=== PATIENT | male | born 1955 | race Caucasian/White ===

== ENCOUNTER 2021-06-05 11:25 | Outpatient (CLI) | payer MEDICARE, MEDICAID | END 2021-06-05 11:26 | disposition critical access hospital (66) | LOC: EMS 11:25 | DX: R10.13 Epigastric pain (principal) | CPT/HCPCS: A0425; A0427 ==

== ENCOUNTER 2021-06-05 11:49 | Emergency (ER) | payer MEDICARE, MEDICAID ==
[2021-06-05 12:17] LABS: BASOPHILS % (AUTO) 0.4 %; EOSINOPHILS % (AUTO) 0.1 %; HCT - HEMATOCRIT 44.8 % (42.0-52.0); HGB - HEMOGLOBIN 16.1 g/dL (14.0-18.0); LYMPHOCYTES % (AUTO) 4.4 %; MEAN CORPUSCULAR HGB CONC 35.9 g/dL (32.0-36.0); MEAN CORPUSCULAR VOLUME 91.8 fL (80.0-94.0); MEAN PLATELET VOLUME 10.7 fL (7.4-11.4); MONOCYTES % (AUTO) 6.5 %; NEUTROPHILS % (AUTO) 86.9 %; PLT - PLATELET COUNT 66 10^3/uL (130-450); RED BLOOD COUNT 4.88 10^6/uL (4.70-6.10); RED CELL DISTRIBUTION WIDTH 13.9 % (12.0-15.0); WHITE BLOOD COUNT 21.6 x10^3/uL (4.8-10.8)
[2021-06-05 12:24] LABS: ABNORMAL LYMPHS % (MANUAL) 0 %; LYMPHOCYTES % (MANUAL) 0 %
[2021-06-05 12:27] LABS: ALBUMIN 3.3 g/dL (3.2-5.5); CALCIUM 8.5 mg/dL (8.5-10.3); CREATININE 1.2 mg/dL (0.6-1.2); POTASSIUM 3.6 mmol/L (3.5-5.0); TOTAL PROTEIN 6.6 g/dL (6.7-8.2)
[2021-06-05] MEDS ORDERED: ONDANSETRON 4 MG/2 ML VIAL IVP STA (12:35)
[2021-06-05] MEDS ORDERED: SODIUM CHLORIDE 0.9% 1,000 ML IV STA (12:35)
[2021-06-05] MEDS ORDERED: HYDROmorphone 1 MG/ML CARPUJECT IVP STA (12:35)
[2021-06-05 12:40] LABS: BAND NEUTROPHILS % (MANUAL) 31 %; DIFFERENTIAL COMMENT MANUAL DIFFERENTIAL; LYMPHOCYTES # (MANUAL) 0.4 10^3/uL (1.5-3.5); MONOCYTES # (MANUAL) 1.1 10^3/uL (0.0-1.0); NEUTROPHILS # (MANUAL) 20.1 10^3/uL (1.5-6.6); REACTIVE LYMPHS % (MANUAL) 2 %
--- NOTE | 2021-06-05 12:45 | ED Physician Documentation ---
PD HPI ABD PAIN - Stated complaint Stated Complaint: ABD PX - Chief complaint Chief Complaint: Abd Pain - History obtained from History obtained from: Patient - History of Present Illness Timing - onset: How many days ago (2) Timing - duration: Days (2) Timing - details: Gradual onset Pain level max: 10 Pain level now: 10 Quality: Aching, Pain Location: Epigastric Radiation: No: Chest, , Lower back, Left flank, Left shoulder, Right flank, Right shoulder, Upper back Worsened by: Moving, Palpation Associated symptoms: Nausea, Diarrhea. No: Fever, Vomiting, Hematemesis, Co nstipation, Melena, Hematochezia, Dysuria, Hematuria - Additional information Additional information: Patient is a 66-year-old male who presents to the emergency department complaint of abdominal pain for the past 2 days. Complains of fever as well. He states similar symptoms occurred about 4 years ago when he was hospitalized at [facility] for 2 days. He states that they never told him what the diagnosis was. He states that he thought it would get better but the pain has gotten progressively worse over the past 2 days. The pain is mainly in the epigastric area. Nonradiating. Nothing seems to make it better. Worse with movement and palpation. Has had nausea but no vomiting. Has had diarrhea. No constipation. No melena. No dysuria. He states he drinks 1-2 beers per night. He states he recently started smoking 1 month ago as well. Review of Systems Constitutional: denies: Fever, Chills Ears: denies: Ear pain Nose: denies: Rhinorrhea / runny nose, Congestion Respiratory: denies: Cough GI: denies: Nausea, Vomiting, Diarrhea Skin: denies: Rash Musculoskeletal: denies: Neck pain, Back pain Neurologic: denies: Headache PD PAST MEDICAL HISTORY - Past Medical History Past Medical History: Yes Cardiovascular: Hypertension GI: GERD - Past Surgical History Past Surgical History: Yes General: Cholecystectomy - Present Medications Home Medications: Ambulatory Orders Medication Instructions Recorded Confirmed No Known Home Medications 06/05/21 06/05/21 - Allergies Allergies/Adverse Reactions: Allergies Allergy/AdvReac Type Severity Reaction Status Date / Time No Known Drug Allergies Allergy Verified 06/05/21 11:55 PD ED PE NORMAL - Vitals Vital signs reviewed: Yes - General General: Alert and oriented X 3, No acute distress, Well developed/nourished - HEENT HEENT: PERRL, Moist mucous membranes - Neck Neck: Supple, no meningeal sign - Cardiac Cardiac: RRR, Strong equal pulses - Respiratory Respiratory: No respiratory distress, Clear bilaterally - Abdomen Abdomen: Soft, Non distended, Other (Tender to palpation epigastric. Positive rebound and guarding.) - Derm Derm: Warm and dry - Extremities Extremities: No edema, No calf tenderness / cord - Neuro Neuro: Alert and oriented X 3 - Psych Psych: Normal mood, Normal affect Results - Vitals Vitals: Vital Signs - 24 hr 06/05/21 06/05/21 06/05/21 11:55 12:06 12:33 Temperature 38.0 C H Heart Rate 120 H 120 H 119 H Respiratory 20 25 H 25 H Rate Blood Pressure 132/89 H 113/77 113/77 O2 Saturation 99 97 99 06/05/21 06/05/21 13:10 13:36 Temperature Heart Rate 113 H 105 H Respiratory 20 19 Rate Blood Pressure 118/88 H O2 Saturation 100 99 Oxygen O2 Source Room air - Labs Labs: Laboratory Tests 06/05/21 06/05/21 06/05/21 12:10 12:10 12:10 WBC 21.6 H RBC 4.88 Hgb 16.1 Hct 44.8 MCV 91.8 MCH 33.0 H MCHC 35.9 RDW 13.9 Plt Count 66 L MPV 10.7 Neut # (Auto) Not Reportable Lymph # (Auto) Not Reportable Bertie # (Auto) Not Reportable Eos # (Auto) Not Reportable Baso # (Auto) Not Reportable Absolute Nucleated RBC Not Reportable Total Counted 100 Band Neuts % (Manual) 31 H Reactive Lymphs % (Man) 2 Abnorm Lymph % (Manual) 0 Nucleated RBC % Not Reportable Neutrophils # (Manual) 20.1 H Lymphocytes # (Manual) 0.4 L Monocytes # (Manual) 1.1 H Eosinophils # (Manual) 0.0 Basophils # (Manual) 0.0 Differential Comment MANUAL DIFFERENTIAL ESR PT INR APTT Sodium 134 L Potassium 3.6 Chloride 101 Carbon Dioxide 17 L Anion Gap 16.0 H BUN 30 H Creatinine 1.2 Estimated GFR (MDRD) 61 L Glucose 147 H Lactic Acid Calcium 8.5 Total Bilirubin 8.0 H AST 141 H ALT 168 H Alkaline Phosphatase 79 C-Reactive Protein Total Protein 6.6 L Albumin 3.3 Globulin 3.3 Albumin/Globulin Ratio 1.0 Lipase 24 Urine Color Urine Clarity Urine pH Ur Specific Eden Urine Protein Urine Glucose (UA) Urine Ketones Urine Occult Blood Urine Nitrite Urine Bilirubin Urine Urobilinogen Ur Leukocyte Esterase Urine RBC Urine WBC Urine WBC Clumps Ur Squamous Epith Cells Urine Bacteria Urine Casts Ur Microscopic Review Urine Culture Comments Blood Type Blood Type Recheck O POSITIVE Antibody Screen 06/05/21 06/05/21 06/05/21 13:05 13:26 13:26 WBC RBC Hgb Hct MCV MCH MCHC RDW Plt Count MPV Neut # (Auto) Lymph # (Auto) Bertie # (Auto) Eos # (Auto) Baso # (Auto) Absolute Nucleated RBC Total Counted Band Neuts % (Manual) Reactive Lymphs % (Man) Abnorm Lymph % (Manual) Nucleated RBC % Neutrophils # (Manual) Lymphocytes # (Manual) Monocytes # (Manual) Eosinophils # (Manual) Basophils # (Manual) Differential Comment ESR 47 H PT INR APTT Sodium Potassium Chloride Carbon Dioxide Anion Gap BUN Creatinine Estimated GFR (MDRD) Glucose Lactic Acid Calcium Total Bilirubin AST ALT Alkaline Phosphatase C-Reactive Protein 37.1 H Total Protein Albumin Globulin Albumin/Globulin Ratio Lipase Urine Color DK. ORANGE Urine Clarity CLEAR Urine pH 6.0 Ur Specific Eden 1.025 Urine Protein 30 H Urine Glucose (UA) NEGATIVE Urine Ketones 15 H Urine Occult Blood SMALL H Urine Nitrite NEGATIVE Urine Bilirubin LARGE H Urine Urobilinogen 1 (NORMAL) Ur Leukocyte Esterase NEGATIVE Urine RBC 0-5 Urine WBC 0-3 Urine WBC Clumps PRESENT Ur Squamous Epith Cells FEW Squamous Urine Bacteria Few Urine Casts 0-2 WBC Casts Ur Microscopic Review INDICATED Urine Culture Comments NOT INDICATED Blood Type Blood Type Recheck Antibody Screen 06/05/21 06/05/21 06/05/21 13:26 13:48 13:48 WBC RBC Hgb Hct MCV MCH MCHC RDW Plt Count MPV Neut # (Auto) Lymph # (Auto) Bertie # (Auto) Eos # (Auto) Baso # (Auto) Absolute Nucleated RBC Total Counted Band Neuts % (Manual) Reactive Lymphs % (Man) Abnorm Lymph % (Manual) Nucleated RBC % Neutrophils # (Manual) Lymphocytes # (Manual) Monocytes # (Manual) Eosinophils # (Manual) Basophils # (Manual) Differential Comment ESR PT 13.3 H INR 1.2 APTT 24.5 L Sodium Potassium Chloride Carbon Dioxide Anion Gap BUN Creatinine Estimated GFR (MDRD) Glucose Lactic Acid 2.6 H Calcium Total Bilirubin AST ALT Alkaline Phosphatase C-Reactive Protein Total Protein Albumin Globulin Albumin/Globulin Ratio Lipase Urine Color Urine Clarity Urine pH Ur Specific Eden Urine Protein Urine Glucose (UA) Urine Ketones Urine Occult Blood Urine Nitrite Urine Bilirubin Urine Urobilinogen Ur Leukocyte Esterase Urine RBC Urine WBC Urine WBC Clumps Ur Squamous Epith Cells Urine Bacteria Urine Casts Ur Microscopic Review Urine Culture Comments Blood Type O POSITIVE Blood Type Recheck Antibody Screen NEGATIVE - Rads (name of study) CT abdomen and pelvis Radiology: Final report received, EMP read contemporaneously, See rad report PD MEDICAL DECISION MAKING - ED course Complexity details: reviewed results, re-evaluated patient, considered differential, d/w patient, d/w customer support consultant ED course: Patient appears to be having a impending rupture of his AAA. I discussed the case with radiology, Dr. Fairbanks at 1332. I contacted [facility] at 1335. They state that they have no ICU beds and cannot care for the patient. I then contacted [facility] for emergent transfer at 1338. Talked to the [facility] transfer center at 1348. They state that this needs to be run by vascular surgery. They will contact Dr. Jones for potential acceptance. Discussed the case with Dr. Jones, [facility], vascular surgery at 1410. He graciously accepts in transfer. Patient will be sent via [facility] to [facility]. Pain well controlled. [address] COBRA forms completed. This document was made in part using voice recognition software. While efforts are made to proofread this document, sound alike and grammatical errors may occur. IMPRESSION: 1. Fusiform infrarenal abdominal aortic aneurysm and aneurysm of the right common iliac artery. Thrombus formation throughout aortic lumen and right common iliac artery lumen contrast extension into thrombus along the anterior aspect of abdominal aortic aneurysmal sac concerning for impending rupture. 2. No bowel obstruction or abnormal bowel wall thickening. No free fluid or free air. Colonic diverticulosis without evidence of acute diverticulitis. 3. Hepatic steatosis. Prior cholecystectomy. Departure - Departure Disposition: 02 Transfer Acute Care Hosp Clinical Impression: Iliac artery aneurysm, right AAA (abdominal aortic aneurysm) Qualifiers: Presence of rupture: without rupture Qualified Code(s): I71.4 - Abdominal aortic aneurysm, without rupture Abdominal pain Qualifiers: Abdominal location: unspecified location Qualified Code(s): R10.9 - Unspecified abdominal pain Fever Qualifiers: Fever type: unspecified Qualified Code(s): R50.9 - Fever, unspecified Leukocytosis Qualifiers: Leukocytosis type: unspecified Qualified Code(s): D72.829 - Elevated white blood cell count, unspecified Condition: Stable Discharge Date/Time: 06/05/21 14:38
[2021-06-05] MEDS ORDERED: IOVERSOL 320 50 ML VIAL ONE (12:51)
[2021-06-05] MEDS ORDERED: IOVERSOL 320 50 ML VIAL IVP ONE (13:06)
[2021-06-05 13:16] LABS: GLUCOSE, URINE (UA) NEGATIVE (NEGATIVE); KETONES,URINE (UA) 15 mg/dL (NEGATIVE); LEUKOCYTE ESTERASE, URINE NEGATIVE (NEGATIVE); NITRITE,URINE NEGATIVE (NEGATIVE); OCCULT BLOOD,URINE SMALL (NEGATIVE); PROTEIN,URINE 30 mg/dL (NEGATIVE); UROBILINOGEN,URINE 1 (NORMAL) E.U./dL (NORMAL)
[2021-06-05 13:23] LABS: CLARITY,URINE CLEAR (CLEAR)
[2021-06-05 13:25] LABS: BILIRUBIN,URINE LARGE (NEGATIVE); ICTOTEST,URINE POSITIVE
[2021-06-05 13:33] LABS: RBC,URINE 0-5 /HPF (0-5); SQUAMOUS EPITHELIAL CELL,UR FEW Squamous (<= Few); WBC CLUMPS,URINE PRESENT; WBC,URINE 0-3 /HPF (0-3)
--- NOTE | 2021-06-05 13:33 | CT Report ---
PROCEDURE: Abdomen/Pelvis W INDICATIONS: diffuse abd pain CONTRAST: IV CONTRAST: Optiray 320 ml: 100 PO CONTRAST: *NO PO CONTRAST TECHNIQUE: After the administration of IV contrast, 5 mm thick sections acquired from the diaphragms to the symp hysis. 5 mm thick coronal and sagittal reformats were acquired. For radiation dose reduction, the f ollowing was used: automated exposure control, adjustment of mA and/or kV according to patient size. COMPARISON: None. FINDINGS: Image quality: Excellent. ABDOMEN: Lung bases: Scattered atelectasis in posterior lateral periphery of bilateral lung bases are seen. He art size is enlarged, no pericardial effusion. Solid organs: Liver is normal in size. Moderate hepatic steatosis is seen, no discrete hepatic lesion . Spleen is normal in size and show normal enhancement. Gallbladder is surgically absent Biliary sys tem is non dilated. Pancreas enhances normally. No adrenal nodules. Kidneys demonstrate normal siz e and enhancement, without hydronephrosis. Peritoneum and bowel: Bowel loops demonstrate normal wall thickness and caliber. No free fluid or a ir. Sigmoid diverticulosis is seen without CT evidence of acute diverticulitis. No abscess collectio n. Nodes and vessels: No retroperitoneal or mesenteric adenopathy by size criteria. There is fusiform infrarenal abdominal aortic aneurysm involving distal 10 cm segment of infrarenal a bdominal aorta and measures up to 5.3 x 5.5 cm in largest transverse and AP dimensions series 3 image 42. Heavy thrombosis throughout the aneurysmal lumen is seen with curvilinear contrast material seen within the thrombus material along the anterior aspect of aneurysmal sac concerning for impending ru pture. There is also aneurysm of right common iliac artery measures up to 4.4 cm in diameter series 3 image 61 with thrombus formation within the lumen. Miscellaneous: No ventral hernias. PELVIS: Genitourinary: Bladder wall thickness is normal. Miscellaneous: No inguinal hernias or adenopathy. Bones: No suspicious bony lesions. No vertebral body compression fractures. IMPRESSION: 1. 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 Thr ombus formation throughout aortic lumen and right common iliac artery lumen contrast extension into t hrombus along the anterior aspect of abdominal aortic aneurysmal sac concerning for impending rupture . 2. No bowel obstruction or abnormal bowel wall thickening. No free fluid or free air. Colonic diverti culosis without evidence of acute diverticulitis. 3. Hepatic steatosis. Prior cholecystectomy. Reviewed by: Bora Fairbanks MD on 06/05/2021 1:32 PM PDT Approved by: Bora Fairbanks MD on 06/05/2021 1:32 PM PDT Station ID: [id number]
[2021-06-05 13:34] LABS: BACTERIA,URINE Few /HPF (None Seen); CASTS, URINE 0-2 WBC Casts /LPF
[2021-06-05 13:37] VITALS: BP 118/88
[2021-06-05 14:07] LABS: INR 1.2 (0.8-1.2); PT - PROTHROMBIN TIME 13.3 secs (9.9-12.6)
[2021-06-05 14:14] LABS: PARTIAL THROMBOPLASTIN TIME 24.5 secs (24.9-33.3)
[2021-06-05 15:14] LABS: CORONAVIRUS 229E-RESP PCR NOT DETECTED; CORONAVIRUS HKU1-RESP PCR NOT DETECTED
[2021-06-05 15:15] LABS: B. PARAPERTUSSIS- RESP PCR PAN NOT DETECTED; B. PERTUSSIS- RESP PCR PANEL NOT DETECTED; C. PNEUMONIAE- RESP PCR PANEL NOT DETECTED; CORONAVIRUS NL63-RESP PCR NOT DETECTED; CORONAVIRUS OC43-RESP PCR NOT DETECTED; HUMAN METAPNEUMOVIRUS NOT DETECTED; INFLUENZA A- RESP PCR PANEL NOT DETECTED; INFLUENZA B - RESP PCR PANEL NOT DETECTED; M. PNEUMONIAE- RESP PCR PANEL NOT DETECTED; PARAINFLUENZA VIRUS 1 NOT DETECTED; PARAINFLUENZA VIRUS 2 NOT DETECTED; PARAINFLUENZA VIRUS 3 NOT DETECTED; PARAINFLUENZA VIRUS 4 NOT DETECTED; RHINOVIRUS/ENTEROVIRUS NOT DETECTED; RSV- RESP PCR PANEL NOT DETECTED; SARS-CoV-2 -RESP PCR PANEL NOT DETECTED
== END 2021-06-05 14:38 | disposition short-term general hospital (02) ==
LOC: ED 11:49
DX: I72.3 Aneurysm of iliac artery (principal); I71.4 Abdominal aortic aneurysm, without rupture; R50.9 Fever, unspecified; D72.829 Elevated white blood cell count, unspecified; Z20.822 Contact with and (suspected) exposure to COVID-19
CPT/HCPCS: 36415; 74177; 80053; 81001; 83605; 83690; 85025; 85610; 85651; 85730; 86140; 86850; 86900; 86901; 87040; 87633; 96361; 96374; 99284; 99285; J1170; 81003; 87086

== ENCOUNTER 2021-06-21 09:17 | Outpatient (CLI) | payer MEDICARE, MEDICAID ==
[2021-06-21 15:00] LABS: ALBUMIN 2.9 g/dL (3.2-5.5); BILIRUBIN,DIRECT 0.7 mg/dL (0.1-0.5); BILIRUBIN,TOTAL 1.5 mg/dL (0.2-1.0); CALCIUM 8.7 mg/dL (8.5-10.3); POTASSIUM 3.9 mmol/L (3.5-5.0); TOTAL PROTEIN 7.2 g/dL (6.7-8.2)
== END 2021-06-21 09:18 | disposition home or self-care (01) ==
LOC: LAB.N 09:17
PROVIDERS: ATTEND Internal Medicine
DX: K80.50 Calculus of bile duct without cholangitis or cholecystitis without obstruction (principal); E87.6 Hypokalemia
CPT/HCPCS: 36415; 80048; 80076

== ENCOUNTER 2021-08-29 01:37 | Outpatient (CLI) | payer MEDICARE, MEDICAID | END 2021-08-29 01:38 | disposition critical access hospital (66) | LOC: EMS 01:37 | DX: G89.18 Other acute postprocedural pain (principal) | CPT/HCPCS: A0425; A0429 ==

== ENCOUNTER 2021-08-29 01:56 | Emergency (ER) | payer MEDICARE, MEDICAID ==
--- NOTE | 2021-08-29 01:56 | ED Physician Documentation ---
History of Present Illness - Stated complaint Stated Complaint: POST SURG/POPPED STITCHES - History obtained from History obtained from: Patient - History of Present Illness Timing: Today Pain level now: 2 - Additonal information Additional information: patient had surgery to repair AAA approximately 2 weeks ago at [facility], discharged today. Tonight he noticed blood on his abdominal binder and upon removing the binder he found the wound had opened and thus called 911. Review of Systems Constitutional: denies: Fever GI: reports: Abdominal Pain (not worse than it has been (gradually decreasing post-operative abdominal discomfort since the surgery)). denies: Nausea, Vomiting PD PAST MEDICAL HISTORY - Past Medical History Past Medical History: Yes - Past Surgical History Past Surgical History: Yes Cardiovascular: AAA - Present Medications Home Medications: Ambulatory Orders Medication Instructions Recorded Confirmed No Known Home Medications 06/05/21 06/05/21 - Allergies Allergies/Adverse Reactions: Allergies Allergy/AdvReac Type Severity Reaction Status Date / Time No Known Drug Allergies Allergy Verified 08/29/21 02:04 PD ED PE NORMAL - Vitals Vital signs reviewed: Yes - General General: Alert and oriented X 3, No acute distress, Other (obese male in NAD) - Cardiac Cardiac: RRR, No murmur - Respiratory Respiratory: No respiratory distress, Clear bilaterally - Abdomen Abdomen: Soft, Non tender, Other (midline surgical site is mostly intact except for a 5 cm infraumbilical segment that is dehisced with exposed adipose tissue, no bleeding) Results - Vitals Vitals: Vital Signs - 24 hr 08/29/21 08/29/21 08/29/21 01:56 02:03 04:03 Temperature 36.8 C 36.8 C Heart Rate 90 90 83 Respiratory 20 20 16 Rate Blood Pressure 149/89 H 149/89 H 151/83 H O2 Saturation 100 100 98 Oxygen O2 Source Room air PD MEDICAL DECISION MAKING - ED course Complexity details: considered differential, d/w patient ED course: Presents with dehiscence of surgical site of AAA repair (performed 2 weeks ago). D/W Dr. Solomon who recommends I contact patient's surgeon at [facility]. Patient's vascular surgeon paged, have not heard back for an hour and thus I recontacted Dr. Solomon. He clarifies that he meant that patient can be discharged with moist gauze over dehisced area and then binder in place and patient can contact his surgeon for follow up by the end of today. I do not feel comfortable with this plan until I hear from patient's surgeon that this is appropriate plan and that patient can be followed up in timely fashion. I was able to probe the wound using sterile cotton swabs and there is no bowel visualized and fascia appears intact. I was eventually contacted by Dr. Jerry, covering for Dr. Jones; he agrees with placing moist gauze lightly packed into the opening, then covered with more gauze and abdominal binder placed. He does not recommend antibiotics. He says patient can be discharged and that they should contact the surgical office (Dr. Jones) this morning to discuss follow up recommendations. I discussed this with the patient and he agrees with this plan. I provided patient with sterile gauze, sterile water, and sterile swabs and instructed him to change the gauze daily. Departure - Departure Disposition: 01 Home, Self Care Clinical Impression: Surgical wound breakdown Condition: Good Instructions: ED Wound Check Post Op Bleeding Comments: I discussed your case with Dr. Jerry (covering for Dr. Jones); he recommended lightly packing the surgical site that has opened with moist, sterile gauze and then placing more gauze over this, followed by replacement of the binder. Change the gauze once per day. Contact Dr. Jones's office this morning to arrange for immediate follow up. Discharge Date/Time: 08/29/21 04:48
[2021-08-29] MEDS ORDERED: oxyCODONE 5 MG TABLET PO STA (03:20)
[2021-08-29 04:03] VITALS: BP 151/83
== END 2021-08-29 04:48 | disposition home or self-care (01) ==
LOC: EDUNIT# → ED 01:56
DX: T81.31XA Disruption of external operation (surgical) wound, not elsewhere classified, initial encounter (principal); Y83.8 Other surgical procedures as the cause of abnormal reaction of the patient, or of later complication, without mention of misadventure at the time of the procedure
CPT/HCPCS: 99282; 99283; A9270

== ENCOUNTER 2022-07-21 09:11 | Outpatient (CLI) | payer MEDICARE, MEDICAID | END 2022-07-21 23:59 | disposition critical access hospital (66) | LOC: EMS 09:11 | DX: R42 Dizziness and giddiness (principal); H53.8 Other visual disturbances | CPT/HCPCS: A0425; A0429 ==

== ENCOUNTER 2022-07-21 09:27 | Emergency (ER) | payer MEDICARE, MEDICAID ==
--- NOTE | 2022-07-21 10:01 | ED Physician Documentation ---
History of Present Illness - Stated complaint Stated Complaint: DIZZINESS - Chief complaint Chief Complaint: Neuro - History obtained from History obtained from: Patient - History of Present Illness Timing: How many days ago (4) - Additonal information Additional information: Irene Meyers is a 67-year-old male who has had a AAA repair done last fall. He has been experiencing some ataxic gait for more than a year and he has not discussed this with his physician. 4 days ago he fell into a concrete wall against his forehead. He denies any loss of consciousness with that he indicates that since then he has had worsening dizziness, ataxia and eyesight. He denies specific sided symptoms but does indicate the his speech is rough and this has been present for months as well. Review of Systems Constitutional: denies: Fever Eyes: denies: Decreased vision Ears: denies: Ear pain Nose: denies: Congestion Throat: denies: Sore throat Cardiac: denies: Chest pain / pressure, Palpitations Respiratory: denies: Dyspnea, Cough GI: reports: Abdominal Pain (from the incision area and poor muscle healing). denies: Nausea, Vomiting, Constipation, Diarrhea : denies: Dysuria, Frequency Skin: denies: Rash Musculoskeletal: denies: Neck pain, Back pain, Extremity pain Neurologic: denies: Generalized weakness, Focal weakness, Numbness, Difficulty speaking, Confused, Altered mental status, Headache, Head injury, LOC PD PAST MEDICAL HISTORY - Past Medical History Cardiovascular: Hypertension, Other GI: GERD - Past Surgical History Past Surgical History: Yes General: Cholecystectomy Cardiovascular: AAA - Present Medications Home Medications: Ambulatory Orders Medication Instructions Recorded Confirmed Omeprazole Magnesium 20 mg PO DAILY 07/21/22 07/21/22 Tamsulosin [Flomax] 0.4 mg PO DAILY 07/21/22 07/21/22 Zolpidem [Ambien] 5 mg PO HS PRN 07/21/22 07/21/22 - Allergies Allergies/Adverse Reactions: Allergies Allergy/AdvReac Type Severity Reaction Status Date / Time No Known Drug Allergies Allergy Verified 07/21/22 09:42 - Social History Does the pt smoke?: Yes Smoking Status: Light tobacco smoker Does the pt drink ETOH?: Yes PD ED PE NORMAL - Vitals Vital signs reviewed: Yes (hypertensive ) - General General: Alert and oriented X 3, No acute distress, Well developed/nourished - HEENT HEENT: Other (There is bruising to the forehead centrally looks like about 3 days old) - Neck Neck: Supple, no meningeal sign, No bony TTP - Cardiac Cardiac: RRR, Other (single heart sound) - Respiratory Respiratory: No respiratory distress, Clear bilaterally - Abdomen Abdomen: Normal bowel sounds, Soft, Non tender, Non distended, No organomegaly - Back Back: No CVA TTP, No spinal TTP - Derm Derm: Normal color, Warm and dry, Other - Extremities Extremities: No deformity, No edema - Neuro Neuro: Alert and oriented X 3, chemical laboratory technician 2-12 intact, No motor deficit, No sensory deficit, Other (speech is mildly disarthric) Eye Opening: Spontaneous Motor: Obeys Commands Verbal: Oriented GCS Score: 15 - Psych Psych: Normal mood, Normal affect Results - Vitals Vitals: Vital Signs - 24 hr 07/21/22 07/21/22 07/21/22 09:42 10:10 12:00 Temperature 37 C Heart Rate 79 79 78 Respiratory 14 12 15 Rate Blood Pressure 188/124 H 184/118 H 171/111 H O2 Saturation 100 99 98 07/21/22 07/21/22 13:00 15:00 Temperature Heart Rate 73 86 Respiratory 13 17 Rate Blood Pressure 183/114 H 143/92 H O2 Saturation 99 100 Oxygen O2 Source Room air - EKG (time done) 0937 EKG releavant findings:: EKG personally interpreted by author of this note. Relevant findings are: Rate: Rate (enter#) (86) Rhythm: NSR Ischemia: Normal ST segments Compare to prior EKG: Old EKG unavailable Computer interpretation: Agree with computer - Labs Labs: Laboratory Tests 07/21/22 07/21/22 07/21/22 09:47 10:35 10:49 WBC 7.2 RBC 5.14 Hgb 16.1 Hct 47.8 MCV 93.0 MCH 31.3 H MCHC 33.7 RDW 12.4 Plt Count 206 MPV 9.4 Neut # (Auto) 5.0 Lymph # (Auto) 1.3 L Starke # (Auto) 0.7 Eos # (Auto) 0.1 Baso # (Auto) 0.1 Absolute Nucleated RBC 0.00 Nucleated RBC % 0.0 Sodium 139 Potassium 4.7 Chloride 105 Carbon Dioxide 26 Anion Gap 8.0 BUN 11 Creatinine 1.0 Estimated GFR (MDRD) 75 L Glucose 123 H POC Whole Bld Glucose 124 H Calcium 9.4 Total Bilirubin 0.8 AST 19 ALT 14 Alkaline Phosphatase 97 Total Protein 6.9 Albumin 3.7 Globulin 3.2 Albumin/Globulin Ratio 1.2 Lipase 28 - Rads (name of study) CT head without Relevant Findings:: Prelim report reviewed (Impression: Probable white matter chronic ischemic change without any atrophy or mass effect. If clinical concern persist, consider nonemergent follow-up MRI evaluation), EMP independent interpretation of test PD Medical Decision Making - ED course Complexity details: reviewed results, re-evaluated patient, considered differential, d/w patient Reviewed Lab Results: We reviewed a complete blood count showing a normal white blood cell count normal hemoglobin hematocrit and platelets chemistries were unremarkable with a kidney and liver function and normal electrolytes. A CT scan of the head was obtained and demonstrated the presence of chronic white matter disease consistent with vascular dementia. My interpretation of these results are that the process the patient is presenting with is chronic, progressive and will require further evaluation to confirm. Social Determinants of Health: This 67-year-old male lives by himself and he is having a progressive disease which has made falling a likelihood, and which is not likely to resolve. This required a social work consult for additional resources. ED course: 67-year-old male presents to the emergency department with worsening ataxia. He has had ataxia for more than a year and he has had been of ataxia where he is fallen and hit his forehead 3 days ago. He presents with increasing worsening of his eyesight as well. The patient does have history of vascular disease has recently been to [facility] to have a AAA repaired. He has not had the diagnosis of vascular dementia made as yet. Our radiologic study today is concerning for white matter disease and consistent with a vascular cause. The patient will need further work-up for confirmation to include a nonemergent MRI of the head and neurologic follow-up. I will send the patient back to see his primary for referral to the neurologist and for MRI of the head. I felt the patient required additional resources and have consulted the social work nurse who was able to provide some additional resources. Departure - Departure Disposition: 01 Home, Self Care Clinical Impression: Vascular abnormality of brain Condition: Stable Instructions: ED Confusion Follow-Up: Kuldeep Cortez MD [Primary Care Provider] - Comments: Luzma, the symptoms you are having with unsteadiness on your gait that has been progressive and changes in your eyesight are likely related to a vascular problem in your brain. Similar to what you have in other parts of your body. A confirmation MRI should be obtained and this will require an authorization from your primary care doctor. A follow-up with a neurologist is indicated and you will need a referral from your primary care doctor. This problem will likely leave you with increasing difficulties as time goes on. We have asked the social work nurse to intervene with additional resources. Follow-up with the additional resources as planned. Discharge Date/Time: 07/21/22 15:07
[2022-07-21 10:39] LABS: BASOPHILS # (AUTO) 0.1 10^3/uL (0.0-0.1); BASOPHILS % (AUTO) 0.8 %; EOSINOPHILS # (AUTO) 0.1 10^3/uL (0.0-0.7); HCT - HEMATOCRIT 47.8 % (42.0-52.0); HGB - HEMOGLOBIN 16.1 g/dL (14.0-18.0); LYMPHOCYTES # (AUTO) 1.3 10^3/uL (1.5-3.5); LYMPHOCYTES % (AUTO) 18.5 %; MEAN CORPUSCULAR HEMOGLOBIN 31.3 pg (27.0-31.0); MEAN CORPUSCULAR HGB CONC 33.7 g/dL (32.0-36.0); MEAN PLATELET VOLUME 9.4 fL (7.4-11.4); MONOCYTES # (AUTO) 0.7 10^3/uL (0.0-1.0); MONOCYTES % (AUTO) 9.6 %; NEUTROPHILS % (AUTO) 69.4 %; PLT - PLATELET COUNT 206 10^3/uL (130-450); RED BLOOD COUNT 5.14 10^6/uL (4.70-6.10); RED CELL DISTRIBUTION WIDTH 12.4 % (12.0-15.0); WHITE BLOOD COUNT 7.2 x10^3/uL (4.8-10.8)
[2022-07-21 11:06] LABS: ALBUMIN 3.7 g/dL (3.2-5.5); ALBUMIN/GLOBULIN RATIO 1.2 (1.0-2.2); BILIRUBIN,TOTAL 0.8 mg/dL (0.2-1.0); CALCIUM 9.4 mg/dL (8.5-10.3); POTASSIUM 4.7 mmol/L (3.5-5.0); TOTAL PROTEIN 6.9 g/dL (6.7-8.2)
--- NOTE | 2022-07-21 11:30 | CT Report ---
PROCEDURE: CT brain without contrast INDICATIONS: trauma worsening ataxia and eyesite problems TECHNIQUE: Noncontrast 4.5 mm thick angled axial sections acquired from the foramen magnum to the vertex. For r adiation dose reduction, the following was used: automated exposure control, adjustment of mA and/or kV according to patient size. COMPARISON: None. FINDINGS: Image quality: Excellent. CSF spaces: Basal cisterns are patent. No extra-axial fluid collections. Ventricles are normal in size and shape. Brain: No midline shift. No intracranial masses or hemorrhage. Hager-white matter interface is norm al. No evidence of atrophy. There is white matter probable chronic ischemic changes noted in the rig ht internal capsule posterior limb Skull and face: Calvarium and visualized facial bones are intact, without suspicious lesions. Sinuses: Visualized sinuses and mastoids are clear. IMPRESSION: Probable white matter chronic ischemic change without atrophy or mass effect. If clinical concern per sists, consider nonemergent follow-up MRI evaluation. Reviewed by: Adalid Barfield MD on 07/21/2022 10:29 AM GARRETT Approved by: Adalid Barfield MD on 07/21/2022 10:29 AM GARRETT Station ID: [id number]
[2022-07-21 15:08] VITALS: BP 143/92
== END 2022-07-21 15:07 | disposition home or self-care (01) ==
LOC: EDUNIT# → ED 09:27
DX: Q28.3 Other malformations of cerebral vessels (principal); Z72.0 Tobacco use
CPT/HCPCS: 36415; 80053; 83690; 85025; 93005; 99284

== ENCOUNTER 2022-12-02 14:34 | Outpatient (CLI) | payer MEDICARE, MEDICAID ==
--- NOTE | 2022-12-02 16:07 | Ultrasound Report ---
PROCEDURE: Carotid Doppler Complete INDICATIONS: CVA TECHNIQUE: Color and pulse Doppler interrogation was performed of both carotid systems, with image documentation and velocity measurements. COMPARISON: None. FINDINGS: Right side: Brachial blood pressure: 167/109 mm Hg. Common carotid artery peak systolic velocity: 46 cm/sec. Internal carotid artery peak systolic velocity: 5 cm/sec. Internal carotid artery end diastolic velocity: 35 cm/sec. External carotid artery peak systolic velocity: 105 cm/sec. ICA/CCA peak systolic ratio: 1.8 . Hager scale imaging description: Mild left-sided plaque. Percent internal carotid artery stenosis: Less than 50 percent stenosis. Vertebral artery: Flow direction is antegrade. Left side: Brachial blood pressure: 161/108 mm Hg. Common carotid artery peak systolic velocity: 61 cm/sec. Internal carotid artery peak systolic velocity: 61 cm/sec. Internal carotid artery end diastolic velocity: 32 cm/sec. External carotid artery peak systolic velocity: 58 cm/sec. ICA/CCA peak systolic ratio: 1 . Hager scale imaging description: Mild atherosclerotic plaque. Percent internal carotid artery stenosis: Less than 50 percent stenosis. Vertebral artery: Flow direction is antegrade. IMPRESSION: 1. In the right internal carotid artery, there is less than 50 percent stenosis based on peak systoli c velocity criteria. 2. In the left internal carotid artery, there is less than 50 percent stenosis based on peak systolic velocity criteria. 3. Antegrade blood flow within the right vertebral artery. 4. Antegrade blood flow within the left vertebral artery. The estimate of stenosis included in the report of the imaging study was calculated using the [facility]-end orsed standards of carotid artery stenosis. Reviewed by: Balaji Gatica MD on 12/02/2022 4:06 PM PDT Approved by: Balaji Gatica MD on 12/02/2022 4:06 PM PDT Station ID: [id number]
== END 2022-12-02 14:35 | disposition home or self-care (01) ==
LOC: DI 14:34
PROVIDERS: ATTEND Family Medicine
DX: I63.233 Cerebral infarction due to unspecified occlusion or stenosis of bilateral carotid arteries (principal)
CPT/HCPCS: 93880

== ENCOUNTER 2023-01-08 12:35 | Outpatient (CLI) | payer MEDICARE, MEDICAID | END 2023-01-08 12:36 | disposition home or self-care (01) | LOC: DI 12:35 | PROVIDERS: ATTEND Family Medicine | DX: I63.9 Cerebral infarction, unspecified (principal); I51.7 Cardiomegaly; I77.819 Aortic ectasia, unspecified site | CPT/HCPCS: 93306 ==